=== PATIENT | female | born 1970 | race Two or more races ===

== ENCOUNTER 2016-09-25 06:30 | Emergency (ER) | payer OTHER ==
[2016-09-25 06:45] VITALS: BMI 25.4
--- NOTE | 2016-09-25 07:19 | PDOC ---
History of Present Illness - General Chief Complaint: SIRS, Suspected/Possible Stated Complaint: FEVER Time Seen by Provider: 09/25/16 06:58 History Source: Patient Exam Limitations: No Limitations - History of Present Illness Initial Comments: 09/25/16 07:14 46-year-old female with no past medical history presents to the ED with complaints of fever of 101.3 last night at 10 PM and continual pain at the left breast. Patient states went to see her doctor yesterday who prescribed her Keflex secondary to mastitis and gave her instructions on continual breast- feeding along with self-care directions. Patient states started Keflex yesterday at 5:30 and took 2 more tablets since then. Patient is prescribed 4 times a day 500 mg of the Keflex. Patient states continues to nurse on the left breast but did not take hot shower or massage the breast since seen by the physician yesterday. Timing/Duration: constant Severity: mild Associated Symptoms: reports: fever/chills, other (pain at left breast) Past History - Past Medical History Home Medications: Ambulatory Orders Cephalexin [Keflex] 500 mg PO Q6H 09/25/16 Ibuprofen [Advil -] 400 mg PO QID 09/25/16 Lanolin Topical Ointment - 1 applic TP DAILY 09/25/16 Anemia: No Asthma: No Cancer: No Cardiac Disorders: No CVA: No COPD: No DVT: No Dementia: No Diabetes: No Dialysis: No GI Disorders: No Disorders: No HTN: No Hypercholesterolemia: No HIV: No Kidney Stones: No Liver Disease: No Psychiatric Problems: No Seizures: No Thyroid Disease: No Lung CA: No - Surgical History Abdominal Surgery: No Appendectomy: No Cardiac Surgery: No Cholecystectomy: No Gastric Stapling: No GI Surgery: No Lung Surgery: No Neurologic Surgery: No - Immunization History Immunization Up to Date: Yes - Psycho/Social/Smoking Cessation Hx Anxiety: No Suicidal Ideation: No Smoking History: Never smoked Have you smoked in the past 12 months: No Information on smoking cessation initiated: No Hx Alcohol Use: No Drug/Substance Use Hx: No Substance Use Type: None Patient Lives Alone: No Lives with/in: spouse/SO Review of Systems - Review of Systems Able to Perform ROS?: Yes Constitutional: Yes: Fever HEENTM: No: Symptoms Reported Respiratory: No: Symptoms reported Cardiac (ROS): No: Symptoms Reported ABD/GI: No: Symptoms Reported : No: Symptoms Reported Musculoskeletal: No: Symptoms Reported Integumentary: Yes: Erythema Neurological: No: Symptoms reported *Physical Exam - Vital Signs Last Vital Signs Temp Pulse Resp BP Pulse Ox 99.5 F 87 18 124/73 97 09/25/16 06:38 09/25/16 06:38 09/25/16 06:38 09/25/16 06:38 09/25/16 06:50 - Physical Exam General Appearance: Yes: Nourished, Appropriately Dressed. No: Apparent Distress Respiratory/Chest: positive: Lungs Clear, Normal Breath Sounds. negative: Respiratory Distress, Accessory Muscle Use Cardiovascular: positive: Regular Rhythm, Regular Rate. negative: Murmur Gastrointestinal/Abdominal: positive: Normal Bowel Sounds, Soft Extremity: negative: Pedal Edema Integumentary: positive: Other (patient with left breast erythema surrounding the nipple with mild excoriation to the nipple. area warm to touch and semifirm) Neurologic: positive: Motor Strength 5/5 (ambulatory) Medical Decision Making - Medical Decision Making 09/25/16 07:19 Patient recent diagnosis of mastitis yesterday by her RN [facility] And is currently on Keflex which she began last evening. Patient upon arrival was nursing girl without difficulty from the left breast. Noted milk expression with manual compression. Patient explained to mother to continue with Keflex and instructions of massage hot shower and allowing area open to air between feedings. Explained to mother she is only taken 3 tablets and has not completed 24 hours as of yet. I explained to mother if symptoms continue or worsen in the next 48 hours to return to the emergency room. otherwise she can follow up with her [employer]. *DC/Admit/Observation/Transfer Diagnosis at time of Disposition: Mastitis, left, acute - Discharge Dispostion Disposition: HOME Condition at time of disposition: Good - Patient Instructions Printed Discharge Instructions: DI for Mastitis Additional Instructions: Please continue antibiotics as prescribed. Continue to nurse and allow air to the area between feedings. If symptoms continue or worsen over the next 48 hours please return to the emergency room. Otherwise follow-up with your doctor. Print Language: TURKISH
[2016-09-25 07:43] VITALS: BP 122/73; PULSE 72; TEMP 99.1
--- NOTE | 2016-09-25 07:47 | PDOC ---
*Physical Exam - Vital Signs Last Vital Signs Temp Pulse Resp BP Pulse Ox 99.5 F 87 18 124/73 97 09/25/16 06:38 09/25/16 06:38 09/25/16 06:38 09/25/16 06:38 09/25/16 06:50 - Physical Exam General Appearance: Yes: Nourished, Appropriately Dressed Neck: positive: Trachea midline Respiratory/Chest: positive: Lungs Clear, Normal Breath Sounds. negative: Chest Tender, Respiratory Distress Cardiovascular: positive: Regular Rhythm, Regular Rate, S1, S2. negative: Edema , JVD Gastrointestinal/Abdominal: positive: Normal Bowel Sounds, Soft. negative: Tender Musculoskeletal: positive: Normal Inspection. negative: CVA Tenderness Extremity: positive: Normal Capillary Refill, Normal Inspection. negative: Pedal Edema Integumentary: positive: Normal Color, Dry, Warm, Other (left breast with ttp , engorgement, mild erythema. no palp abscess. ) Medical Decision Making - Medical Decision Making 09/25/16 07:42 46 yo F with recent vaginal delivery, breast feeding here with co left breast pain and swelling. was diagnosed with mastitis and started on keflex, has taken 3 doses thus far. does report subjective fevers, was trying to pump but the pump wasn't able to get milk out. taking motrin for pain.no n/v no other complaints. on exam pt awake alert , lungs clear bilaterally, heart RRR no m/r/g. vital no signs of sirs . abd soft NT. left breast with engorment, mild warmth and erythema. n palp abscess. plan: continue taking abx, recommend heat packs and motrin for pain. follow up with ob outpt. pt seen and examined in conjunction with Yanely Zazueta, agree with plan. *DC/Admit/Observation/Transfer Diagnosis at time of Disposition: Mastitis, left, acute - Discharge Dispostion Disposition: HOME Condition at time of disposition: Good - Referrals Referrals: Ashwini Mart [Primary Care Provider] - - Patient Instructions Printed Discharge Instructions: DI for Mastitis Additional Instructions: Please continue antibiotics as prescribed. Continue to nurse and allow air to the area between feedings. If symptoms continue or worsen over the next 48 hours please return to the emergency room. Otherwise follow-up with your doctor. Print Language: MAURITANIAN - Post Discharge Activity
== END 2016-09-25 07:43 | disposition home or self-care (01) ==
LOC: JER 06:30
DX: N61.0 Mastitis without abscess (principal)
CPT/HCPCS: 99283-25

== ENCOUNTER 2017-09-20 22:26 | Emergency (ER) | payer OTHER ==
[2017-09-20 22:41] VITALS: BP 145/89; PULSE 66; TEMP 97.7; BMI 23.4
--- NOTE | 2017-09-20 23:54 | PDOC ---
History of Present Illness - General History Source: Patient Exam Limitations: No Limitations <Nakita Sierra - Last Filed: 09/20/17 23:46> - General History Source: Patient Exam Limitations: No Limitations - History of Present Illness Initial Comments: 09/21/17 00:26 The patient is a 47 year old female, with no significant past medical history who presents to the emergency department with rash for the past 4 days. Patient reports rash to posterior arms, legs, back and posterior legs. Patient denies rash is not painful or itchy. Patient denies taking any medications for relief and presents to the ED for further evaluation. Patient reports trying nutella for the first time few days ago otherwise denies other new foods. Patient denies using new detergents, new soaps or lotions. Patient denies chest pain, palpitations, diaphoresis, headache or dizziness. Patient denies fever, chills, abdominal pain, nausea, vomit, diarrhea or constipation. Patient denies dysuria, frequency, urgency or hematuria. Patient denies sick contacts or recent travel. Allergies: NKA Past surgical history: None Social history: denies etoh, smoking, recreational drug use PCP: None <Ashley Baptiste - Last Filed: 09/21/17 00:27> - General Chief Complaint: Rash Stated Complaint: RASH Time Seen by Provider: 09/20/17 22:54 Past History - Past Medical History Anemia: No Asthma: No Cancer: No Cardiac Disorders: No CVA: No COPD: No DVT: No Dementia: No Diabetes: No Dialysis: No GI Disorders: No Disorders: No HTN: No Hypercholesterolemia: No Kidney Stones: No Liver Disease: No Psychiatric Problems: No Seizures: No Thyroid Disease: No Lung CA: No Other medical history: Pt denies - Surgical History Abdominal Surgery: No Appendectomy: No Cardiac Surgery: No Cholecystectomy: No Gastric Stapling: No GI Surgery: No Lung Surgery: No Neurologic Surgery: No - Immunization History Immunization Up to Date: Yes - Suicide/Smoking/Psychosocial Hx Smoking History: Never smoked Have you smoked in the past 12 months: No Information on smoking cessation initiated: No Hx Alcohol Use: No Drug/Substance Use Hx: No Substance Use Type: None <Nakita Sierra - Last Filed: 09/20/17 23:46> <Ashley Baptiste - Last Filed: 09/21/17 00:27> - Past Medical History Allergies/Adverse Reactions: Allergies Allergy/AdvReac Type Severity Reaction Status Date / Time No Known Allergies Allergy Verified 09/20/17 22:37 Home Medications: Ambulatory Orders Cephalexin [Keflex] 500 mg PO Q6H 09/25/16 Ibuprofen [Advil -] 400 mg PO QID 09/25/16 Lanolin Topical Ointment - 1 applic TP DAILY 09/25/16 Hydrocortisone 0.5% Cream [Hytone 0.5% Cream -] 1 applic TP BID PRN #2 tube Review of Systems - Review of Systems Able to Perform ROS?: Yes Comments:: 09/21/17 00:26 GENERAL/CONSTITUTIONAL: No: fever, chills, weakness, loss of appetite. HEAD, EYES, EARS, NOSE AND THROAT: No: change in vision, ear pain, discharge, sore throat, throat swelling. CARDIOVASCULAR: No: chest pain, lightheadedness, palpitations, syncope RESPIRATORY: No: cough, shortness of breath, wheezing, hemoptysis, stridor. GASTROINTESTINAL: No: nausea, vomiting, abdominal cramping, diarrhea, rectal bleeding, constipation. GENITOURINARY: No: dysuria, hematuria, frequency, urgency, flank pain. MUSCULOSKELETAL: No: back pain, neck pain, joint pain, muscle swelling or pain SKIN: +rash. No: lesions, pallor, rash or easy bruising. NEUROLOGIC: No: headache, vertigo, paresthesias, weakness ENDOCRINE: No: unexplained weight gain or loss HEMATOLOGIC/LYMPHATIC: No: anemia, easy bleeding, swelling nodes <Ashley Baptiste - Last Filed: 09/21/17 00:27> *Physical Exam - Vital Signs Last Vital Signs Temp Pulse Resp BP Pulse Ox 97.7 F 66 18 145/89 98 09/20/17 22:38 09/20/17 22:38 09/20/17 22:38 09/20/17 22:38 09/20/17 22:38 <Nakita Sierra - Last Filed: 09/20/17 23:46> - Vital Signs Last Vital Signs Temp Pulse Resp BP Pulse Ox 97.7 F 66 18 145/89 98 09/20/17 22:38 09/20/17 22:38 09/20/17 22:38 09/20/17 22:38 09/20/17 22:38 - Physical Exam Comments: 09/21/17 00:26 GENERAL: The patient is in no acute distress. HEAD: Normal with no signs of trauma. EYES: PERRLA, EOMI, sclera anicteric, conjunctiva clear. ENT: Ears normal, nares patent, oropharynx clear without exudates. Moist mucous membranes. NECK: Normal range of motion, supple without lymphadenopathy, JVD, or masses. LUNGS: Breath sounds equal, clear to auscultation bilaterally. No wheezes, and no crackles. HEART:Regular rate and rhythm, normal S1 and S2 without murmur, rub or gallop. ABDOMEN: Soft, nontender, normoactive bowel sounds. No guarding, no rebound. EXTREMITIES: Normal range of motion, no edema. No clubbing or cyanosis. No erythema, or tenderness. NEUROLOGICAL: Cranial nerves II through XII grossly intact. Normal speech. No focal neurological deficits. MUSCULOSKELETAL: Back nontender to palpation, no CVA tenderness SKIN: +erythematous macular lesions on the back, posterior legs and arms. Warm , Dry, normal turgor. <Ashley Baptiste - Last Filed: 09/21/17 00:27> Medical Decision Making - Medical Decision Making 09/20/17 23:46 Ms Don Amato is a 47 yo F who presents to the ER with a rash Rash has been present for the past 4 days No fevers or chills No new lotion or detergent No recent travel No arthropod bite Only change in diet is that she had nutella two days ago No one else with similar symptoms NOT itchy NOT painful NO purulence On examination: RRR CTA erythematous macular lesions on back and bilateral forearms also calves bilaterally NOT in the interdigitous space no blanching no purulence Will given steroid cream I do not think this is scabies I do not think this is allergic reaction related to food I do not think this is contact dermatitis Will discharge to home Will ask pt to apply steroid cream Will ask pt to follow up with PMD Clinical Impression: rash <Nakita Sierra - Last Filed: 09/20/17 23:46> *DC/Admit/Observation/Transfer - Discharge Dispostion Decision to Admit order: No <Nakita Sierra - Last Filed: 09/20/17 23:46> - Attestations Scribe Attestion: 09/21/17 00:26 Documentation prepared by Ashley Baptiste, acting as emergency medical tech for Nakita Sierra MD <Ashley Baptiste - Last Filed: 09/21/17 00:27> Diagnosis at time of Disposition: Rash and nonspecific skin eruption - Discharge Dispostion Disposition: HOME Condition at time of disposition: Stable - Prescriptions Prescriptions: Hydrocortisone 0.5% Cream [Hytone 0.5% Cream -] 1 applic TP BID PRN #2 tube PRN Reason: rash - Referrals Referrals: Maribell Bal MD [Staff Physician] - - Patient Instructions Printed Discharge Instructions: DI for Rash Additional Instructions: Ms. Ochoa thanks for coming in to the ER please apply steroid cream as prescribed to areas of your rash Please be sure to follow up with your primary care physician You should also follow up with the recordist (Dr Maribell Hernandes) Return to the ER for fevers, chills, sloughing of your skin, changes in rash, any other concerns or complaints - Post Discharge Activity Forms/Work/School Notes: Back to Work
== END 2017-09-21 01:35 | disposition home or self-care (01) ==
LOC: JER 22:26
DX: R21 Rash and other nonspecific skin eruption (principal)
CPT/HCPCS: 99281-25